=== PATIENT | female | born 2000 | race Caucasian/White ===

== ENCOUNTER 2023-02-28 12:10 | Emergency (ER) | payer BC ==
[2023-02-28] MEDS ORDERED: Famotidine 20 MG/2 ML SDV IVPUSH ONE (12:21)
[2023-02-28] MEDS ORDERED: methylPREDNISolone Sodium Succinate 125 MG/2 ML SDV IVPUSH ONE (12:21)
[2023-02-28] MEDS ORDERED: diphenhydrAMINE 50 MG/ML SDV IVPUSH ONE (12:21)
== END 2023-02-28 14:09 | disposition home or self-care (01) ==
LOC: JD.ED 12:10
DX: L29.9 Pruritus, unspecified (principal); T36.95XA Adverse effect of unspecified systemic antibiotic, initial encounter; Z88.1 Allergy status to other antibiotic agents; Z79.899 Other long term (current) drug therapy
CPT/HCPCS: 96374; 96375; 99283; J1200; J2930; J3490; 99284